=== PATIENT | male | born 1965 | race Hispanic/Latino ===

== ENCOUNTER 2018-11-25 02:43 | Emergency (ER) | payer OTHER ==
[2018-11-25] MEDS ORDERED: METHYLPREDNISOLONE SOD SUCC 125MG/2ML VIAL ONE (03:23)
[2018-11-25] MEDS ORDERED: IBUPROFEN 400 MG TABLET ONE (03:24)
== END 2018-11-25 04:03 | disposition home or self-care (01) ==
LOC: EDH 02:43
DX: M10.9 Gout, unspecified (principal); M79.672 Pain in left foot
CPT/HCPCS: 96372; 99283; J2930